=== PATIENT | female | born 1995 | race Caucasian/White ===

== ENCOUNTER 2019-04-23 01:30 | Emergency (ER) | payer BC ==
[~2019-04-23] VITALS: Ht 160 cm; Wt 72.6 kg
[2019-04-23 01:33] VITALS: BP 120/76
--- NOTE | 2019-04-23 01:43 | NUR ---
23/F PRESENTS TO ED WITH , C/O CONSTANT "FEELS LIKE BRUISED" MID-BACK PAIN, X1 MONTH, WORSENING THIS EARLY AM. NO ABNORMALITY, SWELLING OR BRUISING NOTED ON BACK, MILDLY TENDER TO TOUCH. PT DENIES FEVER, CP, SOB, N/V/D, CONSTIPATION OR DYSURIA. AOX4, SKIN NORMAL WARM AND DRY, RR EVEN AND UNLABORED. DENIES MED HX, RX OR RECENT OTC.
--- NOTE | 2019-04-23 01:43 | NUR ---
PT AMBULATED TO BED WITH
[2019-04-23] MEDS ORDERED: KETOROLAC 60 MG/2 ML VIAL IM ONE (01:45)
[2019-04-23 02:15] LABS: APPEARANCE,URINE SL CLOUDY (CLEAR); BILIRUBIN,URINE NEGATIVE (NEGATIVE); BLOOD, URINE NEGATIVE (NEGATIVE); COLOR,URINE YELLOW (YELLOW); LEUKOCYTE ESTERASE ,URINE TRACE (NEGATIVE); NITRITE, URINE NEGATIVE (NEGATIVE); UGLUCOSE NEGATIVE (NEGATIVE)
[2019-04-23 02:27] LABS: RBC,URINE 0-5 /HPF (0-5)
--- NOTE | 2019-04-23 03:52 | NUR ---
PT LAYING IN BED, AT BEDSIDE. VSS. REPORTS IMPROVEMENT IN MID BACK PAIN, 2/10 AT THIS TIME. ALL NEEDS MET.
[2019-04-23] MEDS ORDERED: MORPHINE SULFATE 4 MG/ML SYR IM ONE (04:15)
--- NOTE | 2019-04-23 04:15 | NUR ---
PER ER MD, UA LOOKS GOOD.
[2019-04-23 04:36] VITALS: BP 121/74
== END 2019-04-23 04:36 | disposition home or self-care (01) ==
LOC: MED 01:30
DX: M54.5 Low back pain (principal)
CPT/HCPCS: 81001; 81025; 87086; 96372; 99283; J1885; J2270